=== PATIENT | female | born 1965 | race Caucasian/White ===

== ENCOUNTER → 2017-10-17 | Outpatient (CLI) | payer OTHER ==
[~2017-10-17] VITALS: Ht 174 cm; Wt 54.4 kg
[~2017-10-17] MED LIST: FEROSUL325 MG PO; FLONASE16 G1 BOTH NARES; FOLIC ACID0.4 MG PO; MEGACE20 MG PO; TRAMADOL HCL50 MG PO; ZITHROMAX Z-PA250 MG PO
== END | disposition home or self-care (01) ==
LOC: AMB 09-19 08:00
DX: Z12.11 Encounter for screening for malignant neoplasm of colon (principal); D12.5 Benign neoplasm of sigmoid colon; D12.3 Benign neoplasm of transverse colon; K64.8 Other hemorrhoids
CPT/HCPCS: 88305; J2250; J3010

== ENCOUNTER 2017-12-14 08:17 | Observation (INO) | payer OTHER ==
[~2017-12-14] VITALS: Ht 172.7 cm; Wt 56.9 kg
[2017-12-14] VITALS (14 sets, daily range): BP systolic 106–144; BP diastolic 62–89
[2017-12-14 09:04] LABS: HEMATOCRIT 16.4 % (36.0-46.0); HEMOGLOBIN 4.8 G/DL (11.9-15.5); MCH 22.6 PG (29.0-34.0); MCHC 29.3 G/DL (30.0-36.0); MCV 77.4 FL (83-99); PLATELET COUNT 82 K/uL (156-360); RBC DIS.WIDTH-CV 19.9 % (11.8-14.6); RBC DIS.WIDTH-SD 53.7 % (39-53); RED BLOOD COUNT 2.12 M/uL (3.80-5.20); WHITE BLOOD COUNT 2.6 K/uL (4.1-10.2)
[2017-12-14 09:05] LABS: ALBUMIN 3.4 g/dL (3.2-4.8)
[2017-12-14 09:06] LABS: CHLORIDE 109 mEq/L (99-109); POTASSIUM 3.5 mEq/L (3.7-5.4); SODIUM 137 mEq/L (136-147)
[2017-12-14 09:08] LABS: GLUCOSE 93 mg/dL (70-99); TOTAL PROTEIN 6.2 g/dL (6.4-8.3)
[2017-12-14 09:11] LABS: ALKALINE PHOSPHATASE 101 IU/L (3-129)
[2017-12-14 09:12] LABS: CREATININE 0.7 mg/dL (0.6-1.3); GFR ESTIMATE (CALCULATED) > 59 mL/min/
[2017-12-14 09:13] LABS: AST (GOT) 53 IU/L (2-34); UREA NITROGEN (BUN) 4 mg/dL (9-23)
[2017-12-14 09:14] LABS: ALT (GPT) 20 IU/L (3-49)
[2017-12-14 10:30] LABS: APPEARANCE CLEAR ((CLEAR)); BILIRUBIN NEGATIVE; BLOOD NEGATIVE; COLOR YELLOW ((YELLOW)); GLUCOSE (STRIP) NEGATIVE; KETONES NEGATIVE; LEUKOCYTES NEGATIVE; NITRITE NEGATIVE; PROTEIN (STRIP) NEGATIVE; SPECIFIC GRAVITY 1.024 (1.000-1.030); UCUL ADDED? NO; UROBILINOGEN 0.2 MG/DL (0.2-1.0)
[2017-12-14] MEDS ORDERED: SUCRALFATE1 GM PO (14:51)
[2017-12-14] MEDS ORDERED: RANITIDINE HCL150 MG PO (14:52)
[2017-12-14] MEDS ORDERED: ALEVE220 MG PO (14:52)
[2017-12-14 16:12] LABS: HEMATOCRIT 24.5 % (36.0-46.0); MCV 81.1 FL (83-99)
[2017-12-14 16:13] LABS: HEMOGLOBIN 7.9 G/DL (11.9-15.5)
== END 2017-12-15 10:09 | disposition home or self-care (01) ==
LOC: EME 08:17 → EDOF 16:02
PROVIDERS: Nurse Practitioner Family
PROC: 30233N1 Transfusion of Nonautologous Red Blood Cells into Peripheral Vein, Percutaneous Approach (ICD-10-PCS; principal; 2017-12-14)
DX: D50.0 Iron deficiency anemia secondary to blood loss (chronic) (principal); K74.60 Unspecified cirrhosis of liver; D63.8 Anemia in other chronic diseases classified elsewhere; I72.8 Aneurysm of other specified arteries; R53.83 Other fatigue; K76.0 Fatty (change of) liver, not elsewhere classified; R18.8 Other ascites
CPT/HCPCS: 74177; 80053; 81003; 85014; 85018; 85027; 86850; 86900; 86901; 86920; 99281; 99285; G0378; J7030; P9016